=== PATIENT | male | born 1985 | race African-American/Black ===

== ENCOUNTER 2024-01-19 19:24 | Emergency (ER) | payer MEDICAID, OTHER ==
[~2024-01-19] VITALS: Ht 190.5 cm; Wt 155.0 kg
[2024-01-19 19:33] VITALS: TEMP 98.7; O2SAT 94
[2024-01-19] MEDS ORDERED: NITROGLYCERIN 0.4MG TABLET SL SL PRN (20:00)
[2024-01-19 20:14] LABS: BASOPHILS % 0.7 % (0.0-2.0); DIFFERENTIAL COMMENT 0; EOSINOPHILS % 1.4 % (0.0-5.0); HEMATOCRIT. 41.3 % (42.0-52.0); HEMOGLOBIN. 12.5 g/dL (14.0-18.0); LYMPHOCYTES % 22.2 % (20.0-50.0); MEAN CORPUSCULAR HEMOGLOBIN 26.6 pg (28.0-32.0); MEAN CORPUSCULAR HGB CONC 30.3 g/dL (31.0-37.0); MEAN PLATELET VOLUME 9.9 fl (7.4-10.4); MONOCYTES % 8.3 % (2.0-8.0); NEUTROPHILS % 67.4 % (40.0-76.0); PLATELET 177 x1000/uL (130-400); RED BLOOD CELL COUNT 4.69 mill/uL (4.7-6.1); RED CELL DISTRIBUTION WIDTH 14.6 % (11.6-14.6); WHITE BLOOD COUNT 6.1 x1000/uL (4.5-11.0)
[2024-01-19 20:22] LABS: CHLORIDE 103 mEq/L (98-107); POTASSIUM 3.7 mEq/L (3.5-5.1); SODIUM 139 mEq/L (136-145)
[2024-01-19 20:23] LABS: CARBON DIOXIDE 33 mEq/L (21-32)
[2024-01-19 20:24] LABS: CALCIUM 8.8 mg/dL (8.7-10.4)
[2024-01-19 20:29] LABS: CREATININE 0.9 mg/dL (0.6-1.3); GLUCOSE 124 mg/dL (70-105); TROPONIN I HIGH SENSITIVITY 18 ng/L (3.0-53); UREA NITROGEN BLOOD 9 mg/dL (9-23)
[2024-01-19] MEDS: ASPIRIN 81MG TABLET PO ONE ×2 (20:33→20:34)
[2024-01-19] MEDS: MORPHINE SULFATE 4 MG/ML INJ (FOR IV/IM USE) IV STA (20:34)
[2024-01-19 21:55] LABS: TROPONIN I HIGH SENSITIVITY 21 ng/L (3.0-53)
[2024-01-20] MEDS: IOHEXOL-350 100 ML BOTTLE ONE (00:13)
[2024-01-20 02:20] VITALS: BP 160/78; PULSE 82; RESP 25
[2024-01-20] MEDS ORDERED: IOHEXOL-350 100 ML BOTTLE ONE (06:13)
== END 2024-01-20 02:20 | disposition home or self-care (01) ==
LOC: ER 19:24
DX: R07.89 Other chest pain (principal); I11.0 Hypertensive heart disease with heart failure; I50.9 Heart failure, unspecified
CPT/HCPCS: 80048; 83880; 85025; 85379; 84484; 36415; 71045; 71275; 93005; Q9967 ×2; Z7610 ×2; J2270